=== PATIENT | female | born 2000 | race Caucasian/White ===

== ENCOUNTER 2024-02-17 07:46 | Emergency (ER) | payer BC, SELFPAY ==
[2024-02-17 07:57] VITALS: BP 113/74; PULSE 101; RESP 18; TEMP 36.8; O2SAT 97; BMI 27.8
[2024-02-17 10:00] VITALS: PULSE 82; O2SAT 99
--- NOTE | 2024-02-17 10:37 | ED_ITS ---
HPI - Skin/Abscess/Foreign Bdy General: Chief complaint: Skin/Abscess/Foreign Body Stated complaint: rash Time Seen by Provider: 02/17/24 07:52 Source: patient Mode of arrival: ambulatory Limitations: no limitations History of Present Illness: Patient is a 23-year-old female presents to ED today with complaint of rash. She states yesterday morning she woke up with a rash to her bilateral medial thighs. She was seen at [facility] and placed on 20mg prednisone daily x 5 days. Patient states she woke up this morning with worsening rash. No new environmental, household, chemical exposures. No new medications. She has not had recent illness. Rash is slightly pruritic. She has no other systemic symptoms. MD complaint: rash Onset (ago): day(s) Tetanus up to date: yes Location: generalized Severity: mild Quality: pruritic Relieving factors: none Exacerbating factors: none Context: none Associated symptoms: Reports itching; Deny chills, fever(s) or vomiting Treatments prior to arrival: Benadryl and corticosteroid Related Data Home Medications Medication Instructions Recorded Confirmed dextroamphetamine-amphetamine ER 15 mg PO DAILY 02/17/24 02/17/24 15 mg 24hr capsule,extend release (Adderall XR) diphenhydramine HCl 25 mg tablet 25 mg PO TID PRN allergies 02/17/24 02/17/24 (Benadryl Allergy) prednisone 20 mg tablet 20 mg PO DAILY 02/17/24 02/17/24 Allergies Allergy/AdvReac Type Severity Reaction Status Date / Time No Known Allergies Allergy Verified 02/17/24 08:00 Review of Systems Const: Denies: fever(s), chills, body aches, fatigue or malaise ENMT: Denies: throat pain, enlarged tonsils, odynophagia, mouth pain, swelling of lips/tongue, oral sores, nasal discharge, nasal congestion or sinus pain Card: Denies: chest pain Resp: Denies: dyspnea, productive cough, non-productive cough or chest congestion GI: Denies: abdominal pain, vomiting or diarrhea Musc: Denies: neck pain, back pain, extremity pain or joint pain Skin/Breast: Reports: rash, pruritus and erythema Neuro: Denies: headache(s), numbness in extremities, weakness in extremities, sensory changes or dizziness Physical Exam Const: COMMON NORMALS: no acute distress, average body habitus, patient or iented x3, no limitations, healthy appearing, alert and well nourished GENERAL APPEARANCE: cooperative HENMT: FACE & SINUS: normal facial exam THROAT: posterior oropharynx normal and tonsils normal Eye: GENERAL EYE: appearance normal, both eyes and all related structures Neck/C-Spine: COMMON NORMALS: no lymphadenopathy Resp: COMMON NORMALS: normal respiratory effort and clear to auscultation bilaterally AUSCULTATION: clear to auscultation bilaterally Cardio: COMMON NORMALS: regular rate and regular rhythm RATE: regular rate RHYTHM: regular rhythm Extremity: GENERAL: Yes normal exam except as noted Neuro: COMMON NORMALS: patient oriented x3 and gait normal SENSORIU M/ORIENTATION: Yes alert Skin: RASHES: rashes noted OTHER: Diffuse urticaria Course Vital Signs: Vital signs: Vital Signs Temperature 98.2 F 02/17/24 07:57 Pulse Rate 82 02/17/24 10:00 Respiratory Rate 18 02/17/24 07:57 Blood Pressure 113/74 02/17/24 07:57 Pulse Oximetry 99 02/17/24 10:00 Oxygen Delivery Me thod Room Air 02/17/24 07:57 MDM - Skin/Abscess/Foreign Bdy Medicial Decision Making Patient with classic urticarial rash. This somewhat improved after IV medications. She will be encouraged to continue her steroids and benadryl as well as other conservative therapies. This should be self-limited. Would like her to follow-up with primary care later this week/early next week if rash is not improving and certainly if rash is worsening. Return to ED precautions given. Medical Records I reviewed the patient's medical records. No radiology studies performed this visit Discharge Plan Discharge Patient Disposition: Home Clinical Impression: Urticaria Condition: Stable Prescriptions: No Action prednisone 20 mg tablet 20 mg PO DAILY diphenhydramine HCl [Benadryl Allergy] 25 mg Tablet 25 mg PO TID PRN (Reason: allergies) dextroamphetamine-amphetamine [Adderall XR] 15 mg Capsule,Extended Release 24hr 15 mg PO DAILY Discharge Orders: Discharge ED (Routine); Ordered 02/17/24 Ordered By: Juliana Handy Patient Instructions: Urticaria, Urticaria (ED) Coding Level of Care Code ED Community Resource Officer for Diana Michelle
[2024-02-17] MEDS: methylPREDNISolone sod succ 125 mg/2 mL INJ IVP (11:12)
[2024-02-17] MEDS: famotidine 20 mg/2 mL INJ 40 MG IVP (11:12)
[2024-02-17] MEDS: diphenhydrAMINE 50 mg/mL SDV 1mL IVP (11:12)
[2024-02-17 12:29] VITALS: BP 131/78; PULSE 102; RESP 16; O2SAT 99
== END 2024-02-17 12:29 | disposition home or self-care (01) ==
PROVIDERS: Emergency Provider Physician Assistant
DX: L50.9 Urticaria, unspecified (principal)
CPT/HCPCS: 96374; 96375; 99284; J1200; J2919; J3490

== ENCOUNTER → 2024-02-19 15:12 | Outpatient (BNVA) | payer BC, SELFPAY | PROVIDERS: Visit Provider Nurse Practitioner Women's Health | DX: Z01.419 Encounter for gynecological examination (general) (routine) without abnormal findings (principal) | CPT/HCPCS: 88175 ==

== ENCOUNTER 2024-04-08 05:44 | Day surgery (SDC) | payer BC, SELFPAY ==
--- NOTE | 2024-03-29 10:08 | ANES.PREANE2 ---
Pre-Anesthetic Assessment Height/Weight: Height 1.7 m Operation Date: 04/08/24 07:10 Proposed Procedures p Laparoscopic billateral salpingectomy 38135, Z30.2(Bilateral) - Chapo Rendon MD Familial anesthetic complications: None Was Beta Luisa taken within 24 hours: N/A Was Clonidine taken within 24 hours: N/A Social No alcohol and No tobacco Exam alert, oriented x 3, clear to auscultation bilaterally and regular rate & rhythm Airway Mallampati: Class I Dentition: full Anesthetic Plan ASA status: 1 Anesthesia: General Risk of > 500 ml blood loss (7ml/kg in children): No Other Pertinent Information Patient states she is not natural redhead for purposes of anesthesia dosing Medications/Allergies Home Medications Medication Instructions Recorded Confirmed Last Taken Type dextroamphetamine-amphetamine ER 15 mg PO DAILY 02/17/24 03/29/24 03/08/24 History 15 mg 24hr capsule,extend release (Adderall XR) Allergies Allergy/AdvReac Type Severity Reaction Status Date / Time No Known Allergies Allergy Verified 03/22/24 14:57 [facility] Anesthesia Family History Mother Ovarian cancer Stroke High cholesterol Grandmother High cholesterol Stroke Grandfather Breast cancer Denies family history of Colon cancer Diabetes Heart disease Hypertension Uterine cancer Thyroid disease Social History Smoking and tobacco/nicotine status: never used tobacco/nicotine Female Reproductive History Date of last menstrual period: 03/03/24 Data Anesthesia Cardiac Studies: No Data to Display
[2024-04-08] VITALS (9 sets, daily range): BP systolic 90–131; BP diastolic 58–84; PULSE 73–100; RESP 16–17; TEMP 36.3–37.2; O2SAT 92–98; BMI 29.0
[2024-04-08] MEDS: sodium chloride 0.9% 1,000 ML 30 ML IV (06:40)
[2024-04-08] MEDS: metroNIDAZOLE IV 500 MG/100 ML PREMIX 100 MG IV (06:50)
[2024-04-08] MEDS: scopolamine 1 mg PATCH 1 PATCH TRANSDERMA (06:50)
--- NOTE | 2024-04-08 06:56 | W.PM.OPSUD ---
Surgery/Procedure H&P Update DATE OF PROCEDURE: April 08, 2024 DATE H&P PERFORMED: 03/22/24 H&P UPDATE INFORMATION: I have reviewed H&P completed within last 30 days, I have examined patient prior to procedure and No changes to prior documentation PREOP DIAGNOSIS: Desire permanent sterilization PLANNED PROCEDURE: Operation Date: 04/08/24 07:00 Proposed Procedures p Laparoscopic billateral salpingectomy 31747, Z30.2(Bilateral) - Chapo Rendon MD
[2024-04-08 07:05] LABS: Basophils # 0.1 10^3/uL (0.0-0.1); Basophils % 1.2 %; Eosinophils # 0.7 10^3/uL (0.0-0.8); Eosinophils % 7.6 %; Hematocrit 41.1 % (36-47); Lymphocytes # 2.3 10^3/uL (0.8-4.8); Lymphocytes % 24.5 %; Mean Corpuscular HGB Conc 32.8 g/dL (30-55); Mean Corpuscular Hemoglobin 28.2 pg (27-33); Mean Corpuscular Volume 85.8 fl (85-98); Mean Platelet Volume 9.7 fL (7.4-10.4); Monocytes # 0.7 10^3/uL (0.2-0.9); Monocytes % 7.8 %; Neutrophils # 5.52 10^3/uL (1.8-7.7); Neutrophils % 58.5 %; Nucleated Red Blood Cells % 0 %; Platelet Count 332 10^3/cmm (157-399); Red Blood Count 4.79 10^6/uL (3.85-5.65); Red Cell Distribution Width 13.4 % (12.1-15.1); White Blood Count 9.44 10^3/uL (3.29-11.43)
[2024-04-08] MEDS: ceFAZolin 2,000 mg SDV 2000 MG IVP (07:08)
[2024-04-08 07:12] LABS: OR HCG Qualitative Urine Negative (Negative)
[2024-04-08 07:15] LABS: Bilirubin Urine Negative (Negative); Blood Urine Negative (Negative); Glucose Urine UA Negative (Normal); Ketones Urine Trace (Negative); Leukocyte Esterase Urine Negative (Negative); Nitrate Urine Negative (Negative); Protein Urine Trace (Negative); Urine Appearance Cloudy (CLEAR); pH Urine 5.5 (5-7)
[2024-04-08 07:20] LABS: Add Urine Microscopic? YES; Bacteria Urine 1+ /hpf; Hyaline Casts Urine 7.01 /lpf; Squamous Epithelial Cell Urine 0-5 /hpf (0-5); WBC Urine 0-5 /hpf (0-5)
[2024-04-08 07:24] LABS: Specific Gravity, Urine 1.032 (1.005-1.030); Urine Color Orange (Yellow)
[2024-04-08 07:26] LABS: Alanine Aminotransferase 14 U/L (0-33); Albumin Level 4.2 g/dL (3.5-5.2); Alkaline Phosphatase 80 U/L (35-105); Anion Gap 13.6 (5-19); Aspartate Amino Transferase 13 U/L (0-32); Blood Urea Nitrogen 9 mg/dL (6-20); Calcium 9.1 mg/dL (8.5-10.5); Carbon Dioxide 25 mmol/L (22-29); Chloride 105 mmol/L (98-107); Creatinine Clr Calc Pharmacy 193.1629; Globulin 2.8 g/dL (1.3-4.6); Glomerular Filtration Rate 151.6 mL/min (90-130); Glucose 92 mg/dL (65-115); Osmolality Calculated 288 mOsm/kg (285-295); Potassium 3.6 mmol/L (3.5-5.1); Sodium 140 mmol/L (136-145); Total Bilirubin 0.6 mg/dL (0.15-1.2)
[2024-04-08] MEDS: BUPivacaine 0.5% INJ 10 mL INJECTION (07:54)
--- NOTE | 2024-04-08 08:49 | P.OP_ITS ---
Operative Report Date of procedure: April 08, 2024 Pre-op diagnosis: Desire permanent sterilization Post-op diagnosis: same Post-op findings: Normal pelvic organ Procedure done: Laparoscopic bilateral salpingectomy Specimens removed/disposition: Left and right fallopian tube Surgeon: Chapo Rendon MD Estimated blood loss (mL): 5 IV fluids (mL): 700 Urine output: 50 Complications: None Procedure: After informed consent, the patient was taken to the operating room where general anesthesia was administered. She was placed in the dorsal lithotomy position and prepped and draped in sterile fashion. Pre-Procedure Time-Out verifying the correct patient identity, correct procedure verified with consent, correct site and side, correct patient position, availability of correct implants and any special equipment or requirements was performed and acknowledge by the OR team. The patient was examined under anesthesia and found to have a normal uterus with normal adnexa. A weighted speculum was placed in the vagina, and the anterior lip of cervix was grasped with the single toothed tenaculum. A uterine manipulator was advanced into the endocervical canal and uterus. The tenaculum was removed after uterine manipulator was secured. The speculum was removed from the vagina. An intraumbilical incision was made with a scalpel. While tenting up on the abdomen, a Verres needle was admitted into the intra-abdominal cavity. A saline drop test was performed and noted to be within normal limits. Pneumoperitoneum was attained with 4 liters of carbon dioxide. The Verres needle was removed. A 5 mm Opitc view trocar and sleeve were admitted into the abdomen and laparoscopic confirmation of location was achieved. A second incision was made 3 cm above the symphysis pubis, and a 5 mm trocar sleeves were admitted into the abdomen under direct laparoscopic visualization without complication. A survey revealed normal abdominal anatomy with the exception of string adhesion to the right lower anterior abdominal wall. A 5 mm blunt probe was advanced through the second trocar sleeve, and light manipulation of ovaries and uterus to assess the posterior aspects was performed. The pelvic survey shows normal uterus, left and right adnexa. The left ovary was noted with a follicular cyst. The string adhesion was fulgurated and transected with good hemostasis with the Ligasure. The patient was placed into Trendelenburg position. The fallopian tubes were inspected bilaterally and the fimbriated ends of the fallopian tubes were visualized bilaterally. Attention was then directed to the right side. The fallopian tube and mesosalpinx were grasped and the underlying mesosalpinx was cauterized and cut using the Ligasure device. Serial cauterization and cutting was used to separate the fallopian tube from the underlying mesosalpinx until it could be amputated cutting it approximated 2 cm from the cornua. Attention was then turned to the contralateral fallopian tube, which was removed in similar fashion. Both specimens were removed through the trocar and sent to pathology. The instruments were removed. The suprapubic trocar port was removed under direct visualization insuring good hemostasis. The carbon dioxide was allowed to escape from the abdomen. The intraumbilical trocar sleeve was withdrawn under visualization with laparoscope in the sleeve to insure hemostasis. The skin incisions were closed with 3-O Monocryl subcuticular stich and Dermab ond. The instruments were removed from the vagina, and excellent hemostasis was noted. The patient tolerated the procedure well, and sponge, lap and needle count were correct times two. The patient was taken to the recovery room in good condition.
--- NOTE | 2024-04-08 10:13 | PC.NURSE ---
0900- Colon discontinued per COLLEGE COUNSELOR
--- NOTE | 2024-04-08 11:32 | ANE.PACU2 ---
Inpatient post-anesthesia follow up: Airway intact: Yes Vital signs: Temperature 97.4 F Pulse Rate 75 Respiratory Rate 17 Blood Pressure 105/64 Pulse Oximetry 95 Oxygen Delivery Me thod Room Air Oxygen Flow Rate Fraction of Inspir ed Oxygen Hydration adequate: Yes Nausea and vomiting: No Pain level: 3 Mental status: Baseline
== END 2024-04-08 09:45 | disposition home or self-care (01) ==
PROVIDERS: PCP Electrodiagnostic Medicine; Visit Provider Obstetrics & Gynecology
PROC: (CPT 58661; principal; 2024-04-08 07:00)
DX: Z30.2 Encounter for sterilization (principal)
CPT/HCPCS: 58661; 36415; 80053; 81001; 81025; 85025; 86850; 86900; 88302; J0690; J1100; J1885; J2405; J2704; J2710; J3010; J3490; J7030

== ENCOUNTER 2024-07-10 14:35 | Emergency (ER) | payer BC, MEDICAID, SELFPAY ==
[2024-07-10 14:52] VITALS: BP 135/83; PULSE 112; RESP 16; TEMP 36.6; O2SAT 100
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
[2024-07-10] MEDS: iohexol 350 mg/mL 500 mL Btl (per mL) IV (17:59)
[2024-07-10 18:01] LABS: Basophils # 0.1 10^3/uL (0.0-0.1); Basophils % 0.6 %; Eosinophils # 0.6 10^3/uL (0.0-0.8); Eosinophils % 2.8 %; Hematocrit 41.8 % (36-47); Lymphocytes % 14.1 %; Mean Corpuscular HGB Conc 32.5 g/dL (30-55); Mean Corpuscular Hemoglobin 27.8 pg (27-33); Mean Corpuscular Volume 85.5 fl (85-98); Mean Platelet Volume 9.8 fL (7.4-10.4); Monocytes # 1.5 10^3/uL (0.2-0.9); Monocytes % 7.2 %; Neutrophils # 15.66 10^3/uL (1.8-7.7); Neutrophils % 74.5 %; Nucleated Red Blood Cells % 0 %; Platelet Count 333 10^3/cmm (157-399); Red Blood Count 4.89 10^6/uL (3.85-5.65); Red Cell Distribution Width 13.2 % (12.1-15.1); White Blood Count 21.01 10^3/uL (3.29-11.43)
[2024-07-10 18:12] LABS: HCG, Serum Qual Negative (Negative)
[2024-07-10] MEDS: ketorolac 30 mg/mL INJ 15 MG IVP (18:12)
[2024-07-10 18:17] LABS: Alanine Aminotransferase 17 U/L (0-33); Albumin Level 4.5 g/dL (3.5-5.2); Alkaline Phosphatase 79 U/L (35-105); Anion Gap 15.7 (5-19); Aspartate Amino Transferase 18 U/L (0-32); Blood Urea Nitrogen 8 mg/dL (6-20); Carbon Dioxide 22 mmol/L (22-29); Chloride 105 mmol/L (98-107); Creatinine Clr Calc Pharmacy 191.4977; Globulin 3.1 g/dL (1.3-4.6); Glomerular Filtration Rate 150.3 mL/min (90-130); Glucose 87 mg/dL (65-115); Osmolality Calculated 286 mOsm/kg (285-295); Potassium 3.7 mmol/L (3.5-5.1); Sodium 139 mmol/L (136-145); Total Bilirubin 0.2 mg/dL (0.15-1.2); Total Protein 7.6 g/dL (6.6-8.7)
[2024-07-10 18:18] VITALS: BP 125/90; PULSE 102; O2SAT 100
[2024-07-10] MEDS: orphenadrine 30 mg/mL Inj 2 mL 60 MG IVP (18:34)
[2024-07-10] MEDS: HYDROcodone-acetaminophen 5-325 mg Tablet 1 TAB PO (18:34)
[2024-07-10 19:11] VITALS: BP 129/82; PULSE 88; O2SAT 98
== END 2024-07-10 19:20 | disposition home or self-care (01) ==
PROVIDERS: Emergency Provider Emergency Medicine; PCP Electrodiagnostic Medicine
DX: S30.1XXA Contusion of abdominal wall, initial encounter (principal); S13.4XXA Sprain of ligaments of cervical spine, initial encounter; M79.18 Myalgia, other site; V89.2XXA Person injured in unspecified motor-vehicle accident, traffic, initial encounter
CPT/HCPCS: 36415; 70450; 71046; 71260; 72125; 74177; 80053; 84703; 85025; 96374; 96375; 99285; J1885; J2360; J9999

== ENCOUNTER 2024-07-18 11:32 | Emergency (ER) | payer BC, MEDICAID, SELFPAY ==
[2024-07-18 12:32] VITALS: BP 120/86; PULSE 88; TEMP 37; O2SAT 97; BMI 29.0
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
[2024-07-18] MEDS: benzonatate 100 mg Capsule PO (14:30)
[2024-07-18] MEDS: HYDROcodone-acetaminophen 5-325 mg Tablet 1 TAB PO (14:30)
[2024-07-18 15:17] VITALS: BP 120/77; PULSE 87; O2SAT 96
== END 2024-07-18 15:15 | disposition home or self-care (01) ==
PROVIDERS: Emergency Provider Physician Assistant; PCP Electrodiagnostic Medicine
DX: S30.1XXD Contusion of abdominal wall, subsequent encounter (principal); S20.219D Contusion of unspecified front wall of thorax, subsequent encounter; V89.2XXD Person injured in unspecified motor-vehicle accident, traffic, subsequent encounter
CPT/HCPCS: 71046; 99283; J9999